=== PATIENT | male | born 1995 | race Two or more races ===

== ENCOUNTER 2016-09-28 00:25 | Emergency (ER) | payer OTHER ==
[2016-09-28] MEDS ORDERED: PANTOPRAZOLE SODIUM 40 MG VIAL IV ONE (00:45)
[2016-09-28] MEDS ORDERED: ONDANSETRON HCL INJ/PF 4 MG/2 ML SDV IV ONE (00:45)
--- NOTE | 2016-09-28 00:49 | ER Document Report ---
[facility] GI/ - General Mode of Arrival: Ambulatory Information source: Patient, Friend - HPI Patient complains to provider of: Vomiting Associated symptoms: Other - See above <WILBERTO DAWKINS - Last Filed: 09/28/16 02:51> <BO DUPREE - Last Filed: 09/28/16 05:58> - General Chief Complaint: Vomiting Stated Complaint: VOMITING Notes: Patient is a 21 year old male who presents to the emergency department with his friend for vomiting blood. Patient's friend reports that he was drinking today and when he got home he ate something and then said he didn't feel well and proceeded to vomit, friend states that the vomit appeared to have blood in it. After vomiting patient's friend reports that patient collapsed and started shaking. Friend reports patient does not generally drink this much and believes he had two twisted ice teas. Patient recently broke his hand after punching something. (WILBERTO DAWKINS) Past Medical History - General Information source: Patient - Social History Smoking Status: Current Every Day Smoker Frequency of alcohol use: Occasional Drug Abuse: None Family History: Reviewed & Not Pertinent <WILBERTO DAWKINS - Last Filed: 09/28/16 02:51> Review of Systems - Review of Systems Constitutional: No symptoms reported EENT: No symptoms reported Cardiovascular: No symptoms reported Respiratory: No symptoms reported Gastrointestinal: See HPI, Vomiting, Blood in vomit Genitourinary: No symptoms reported Male Genitourinary: No symptoms reported Musculoskeletal: No symptoms reported Skin: No symptoms reported Hematologic/Lymphatic: No symptoms reported Neurological/Psychological: No symptoms reported -: Yes All other systems reviewed and negative <WILBERTO DAWKINS - Last Filed: 09/28/16 02:51> Physical Exam - Vital signs Interpretation: Normal - General General appearance: Other - Smells of EtOH. Drousy but easily arroused. - HEENT Head: Normocephalic, Atraumatic - Respiratory Respiratory status: No respiratory distress Chest status: Nontender Breath sounds: Normal Chest palpation: Normal - Cardiovascular Rhythm: Regular Heart sounds: Normal auscultation Murmur: No - Abdominal Inspection: Normal Distension: No distension Bowel sounds: Normal Tenderness: Nontender Organomegaly: No organomegaly - Skin Skin Temperature: Warm Skin Moisture: Dry Skin Color: Normal <WILBERTO DAWKINS - Last Filed: 09/28/16 02:51> Course - Laboratory Result Diagrams: 09/28/16 00:25 09/28/16 00:25 <WILBERTO DAWKINS - Last Filed: 09/28/16 02:51> - Laboratory Result Diagrams: 09/28/16 00:25 09/28/16 00:25 <BO DUPREE - Last Filed: 09/28/16 05:58> - Re-evaluation Re-evalutation: 09/28/16 Patient appears well. No further vomiting. Blood work within normal limits. Taking by mouth. Embolus without difficulty. Patient will be discharged home is to follow-up with his doctor. Stable for discharge. Likely alcohol-induced gastritis. (BO DUPREE) - Vital Signs Vital signs: Temp Pulse Resp BP Pulse Ox 97.8 F 71 15 106/61 97 09/28/16 00:25 09/28/16 00:25 09/28/16 04:10 09/28/16 04:10 09/28/16 04:10 - Laboratory Laboratory results interpreted by me: 09/28/16 00:25 Sodium 146.7 H Discharge <WILBERTO DAWKINS - Last Filed: 09/28/16 02:51> <BO DUPREE - Last Filed: 09/28/16 05:58> - Discharge Clinical Impression: Vomiting Qualifiers: Vomiting type: unspecified Vomiting Intractability: non-intractable Nausea presence: with nausea Qualified Code(s): R11.2 - Nausea with vomiting, unspecified Alcohol intoxication Qualifiers: Complication of substance-induced condition: uncomplicated Qualified Code(s): F10.120 - Alcohol abuse with intoxication, uncomplicated Condition: Stable Disposition: HOME, SELF-CARE Instructions: Vomiting ([facility]), Acute Alcohol Intoxication ([facility]), Gastritis ([facility]) Forms: Return to Work Scribe Attestation: 09/28/16 05:58 I personally performed the services described in the documentation, reviewed and edited the documentation which was dictated to the scribe in my presence, and it accurately records my words and actions. (BO DUPREE) Scribe Documentation - Scribe Written by Yasmeenibe:: tavo Lopez, 09/28/16, [id number] acting as scribe for :: Ponce <WILBERTO DAWKINS - Last Filed: 09/28/16 02:51>
[2016-09-28 00:52] LABS: ABSOLUTE EOSINOPHILS # (AUTO) 0.2 10^3/uL (0.0-0.6); ABSOLUTE LYMPHOCYTES (AUTO) 3.6 10^3/uL (0.5-4.7); ABSOLUTE MONOCYTES (AUTO) 0.7 10^3/uL (0.1-1.4); ABSOLUTE NEUT (AUTO) 3.9 10^3/uL (1.7-8.2); BASOPHILS % (AUTO) 0.4 % (0-2); HEMATOCRIT 46.9 % (37.9-51.0); HGB HCT DIFFERENCE 1.1; LYMPHOCYTES % (AUTO) 42.8 % (13-45); MEAN CORPUSCULAR HEMOGLOBIN 30.8 pg (27.0-33.4); MEAN CORPUSCULAR VOLUME 91 fl (80-97); MONOCYTES % (AUTO) 8.1 % (3-13); RED BLOOD COUNT 5.19 10^6/uL (4.35-5.55); RED CELL DISTRIBUTION WIDTH 13.4 % (11.5-14.0); SEGMENTED NEUTROPHILS % (AUTO) 46.7 % (42-78); WHITE BLOOD COUNT 8.3 10^3/uL (4.0-10.5)
[2016-09-28 01:01] LABS: PARTIAL THROMBOPLASTIN TIME 26.3 SEC (23.5-35.8); PROTHROMBIN TIME 12.4 SEC (11.4-15.4)
[2016-09-28 01:17] LABS: ALANINE AMINOTRANSFERASE 35 U/L (21-72); ALBUMIN 4.5 g/dL (3.5-5.0); ALCOHOL 163 mg/dL (NONE DETECTED); ALKALINE PHOSPHATASE 83 U/L (38-126); ANION GAP 16 (5-19); ASPARTATE AMINO TRANSFERASE 56 U/L (17-59); BILIRUBIN,TOTAL 0.5 mg/dL (0.2-1.3); BLOOD UREA NITROGEN 11 mg/dL (7-20); CALCIUM 9.2 mg/dL (8.4-10.2); CARBON DIOXIDE 26 mmol/L (22-30); CHLORIDE 105 mmol/L (98-107); CREATININE RESULT 0.77 mg/dL (0.52-1.25); GLUCOSE 93 mg/dL (75-110); LIPASE 90.9 U/L (23-300); SODIUM 146.7 mmol/L (137-145); TOTAL PROTEIN 7.9 g/dL (6.3-8.2)
[2016-09-28 01:38] LABS: APPEARANCE,URINE CLEAR; BILIRUBIN,URINE NEGATIVE (NEGATIVE); GLUCOSE, URINE NEGATIVE (NEGATIVE); KETONES,URINE NEGATIVE (NEGATIVE); LEUKOCYTE ESTERASE,URINE NEGATIVE (NEGATIVE); NITRITE,URINE NEGATIVE (NEGATIVE); PROTEIN,URINE NEGATIVE (NEGATIVE); URINE SPECIFIC GRAVITY 1.008; UROBILINOGEN,URINE NEGATIVE mg/dL (<2.0)
[2016-09-28] MEDS ORDERED: NORMAL SALINE 1000 ML 1,000 ML IV ONE (02:57)
[2016-09-28] MEDS ORDERED: ONDANSETRON ODT 4 MG TAB (6 TAB/DSPK) PO PRN (04:24)
[2016-09-28] MEDS ORDERED: IBUPROFEN 800 MG TABLET ONE (05:08)
[2016-09-28 05:13] VITALS: BP 106/61
== END 2016-09-28 05:13 | disposition home or self-care (01) ==
LOC: ER 00:25
DX: K92.0 Hematemesis (principal); F10.120 Alcohol abuse with intoxication, uncomplicated; F17.200 Nicotine dependence, unspecified, uncomplicated
CPT/HCPCS: 99284; 96374; 96375; 86900; 86901; 36415; 86850; 82962; 80307; 83690; 85025; 85610; 85730; 80053; 81001; S0164; J2405